=== PATIENT | male | born 1930 | race Caucasian/White ===

== ENCOUNTER 2018-11-16 10:00 | Day surgery (SDC) | payer MEDICARE ==
[2018-11-15 16:14] LABS: BASOPHILS # (AUTO) 0.1 X10'3 (0-0.2); BASOPHILS % (AUTO) 0.6 % (0-1); EOSINOPHILS # (AUTO) 0.1 X10'3 (0-0.9); EOSINOPHILS % (AUTO) 0.9 % (0-6); HEMOGLOBIN 15.8 g/dl (14.0-17.9); LYMPHOCYTES # (AUTO) 1.2 X10'3 (1.1-4.8); LYMPHOCYTES % (AUTO) 13.2 % (21-51); MEAN CORPUSCULAR HEMOGLOBIN 32.4 PG (27.0-31.0); MEAN CORPUSCULAR HGB CONC 34.4 g/dL (33.0-36.5); MEAN CORPUSCULAR VOLUME 94.1 FL (78-98); MEAN PLATELET VOLUME 8.2 FL (7.4-10.4); MONOCYTES # (AUTO) 0.6 X10'3 (0-0.9); MONOCYTES % (AUTO) 6.3 % (2-12); NEUTROPHILS # (AUTO) 7.2 X10'3 (1.8-7.7); PLATELET COUNT 287 X10'3 (140-440); RED BLOOD COUNT 4.88 X10'6 (4.70-6.10); WHITE BLOOD COUNT 9.1 X10'3 (4.5-11.0)
[2018-11-15 16:21] LABS: ALBUMIN 3.9 G/DL (3.4-5.0); ANION GAP 8 (8-16); BLOOD UREA NITROGEN 16 MG/DL (7-18); BUN/CREATININE RATIO 17.2 (5.4-32.0); CALCIUM 8.8 MG/DL (8.5-10.1); CHLORIDE 107 MMOL/L (99-107); CREATININE 0.93 MG/DL (0.60-1.10); GLUCOSE 96 MG/DL (70-104); POTASSIUM 4.2 MMOL/L (3.5-5.1); SODIUM 142 MMOL/L (135-145); TOTAL CARBON DIOXIDE 26.6 MMOL/L (24-32); eGFR 77 ML/MIN
[2018-11-15 16:38] LABS: PARTIAL THROMBOPLASTIN TIME 27 SECONDS (22-32)
[2018-11-16] VITALS (12 sets, daily range): BP systolic 139–160; BP diastolic 75–90
[~2018-11-16] VITALS: Ht 185.4 cm; Wt 95.6 kg
[2018-11-16] MEDS ORDERED: nitroGLYCERIN-Tridil 50MG/D5W 250 ML IV ONE (12:04)
[2018-11-16] MEDS ORDERED: LIDOcaine 1% (10mg/ml)w/preservative injection 20ml MDV ONE (12:04)
[2018-11-16] MEDS ORDERED: iohexol 350MG/ML 100ml bottle IV ONE (12:04)
[2018-11-16] MEDS ORDERED: iohexol 350 MG/ML 50ML vial IV ONE (12:04)
[2018-11-16] MEDS ORDERED: heparin 1,000unit/ml 10ml vial 10 ML ONE (12:04)
[2018-11-16] MEDS ORDERED: midazolam 2 mg/2 ml injection ONE (12:04)
[2018-11-16] MEDS ORDERED: fentaNYL/PF 50MCG/1 ML 2ML syringe ONE (12:04)
[2018-11-16] MEDS ORDERED: normal saline 1000ml 1,000 ML IV SCH (12:05)
[2018-11-16] MEDS ORDERED: diphenhydrAMINE 25mg capsule PO ONE (12:05)
[2018-11-16] MEDS ORDERED: LORazepam 0.5 MG tablet PO ONE (12:05)
[2018-11-16] MEDS ORDERED: NITR0.4T51 SL (12:06)
[2018-11-16] MEDS ORDERED: LISI-600 PO (12:06)
[2018-11-16] MEDS ORDERED: PERM60CR4 TOP (12:06)
[2018-11-16] MEDS ORDERED: POTA10TA10 PO (12:06)
[2018-11-16] MEDS ORDERED: ASPI81TA52 PO (12:06)
[2018-11-16] MEDS ORDERED: FLO0.4C PO (12:06)
== END 2018-11-16 19:00 | disposition home or self-care (01) ==
LOC: SSTAY O 10:00
PROVIDERS: ATTEND Internal Medicine Cardiovascular Disease
DX: I25.10 Atherosclerotic heart disease of native coronary artery without angina pectoris (principal); I10 Essential (primary) hypertension; Z86.718 Personal history of other venous thrombosis and embolism
CPT/HCPCS: 36415; 80048; 85025; 85610; 85730; 93005; 93458; 99152; 99153; A6257; C1769; J1644; J2001; J2250; J3010; J7030; Q0163; Q9967; A4620; C1760; J3490